=== PATIENT | male | born 1955 | race Caucasian/White ===

== ENCOUNTER 2018-07-09 18:03 | Emergency (ER) | payer OTHER ==
[2018-07-09 18:09] VITALS: BMI 24.7
[2018-07-09 18:11] VITALS: RESP 18
[2018-07-09] MEDS ORDERED: Sodium Chloride 0.9% 1,000 ML IV ONE (18:44)
[2018-07-09 19:22] LABS: VENOUS BLOOD GAS BASE EXCESS 1.9 mmol/L (0.0-2.0); VENOUS BLOOD GAS PO2 36 mm/Hg (30-55); VENOUS BLOOD PH 7.36 (7.32-7.43)
[2018-07-09 19:33] LABS: BASO # 0.02 K/mm3 (0.0-2.0); BASO % 0.2 % (0.0-3.0); EOS # 0.1 (0.0-0.7); EOS % 0.5 % (1.5-5.0); GRAN # 8.58 (1.4-6.5); GRAN % 85.8 % (50.0-68.0); HEMOGLOBIN 15.6 g/dL (14.0-18.0); LYMPH # 0.9 (1.2-3.4); MEAN CELL VOLUME 84.3 fl (80.0-105.0); MEAN CORPUSCULAR HEMOGLOBIN 29.8 pg (25.0-35.0); MEAN CORPUSCULAR HGB CONC 35.4 g/dl (31.0-37.0); MEAN PLATELET VOLUME 9.5 fl (7.0-11.0); MONO # 0.5 (0.1-0.6); MONO % 4.5 % (1.0-6.0); RBC 5.23 10^6/uL (3.5-6.1); RED CELL DISTRIBUTION WIDTH 12.7 % (11.5-14.5)
[2018-07-09 19:36] LABS: ALB/GLOB RATIO 1.2 (1.1-1.8); ALBUMIN 4.3 g/dL (3.0-4.8); ALT/SGPT 32 U/L (7-56); AST/SGOT 23 U/L (17-59); BLOOD UREA NITROGEN 24 mg/dL (7-21); CALCIUM 9.2 mg/dL (8.4-10.5); GFR NON-AFRICAN AMERICAN > 60
[2018-07-09 19:48] LABS: B-TYPE NATRIURETIC PEPTIDE 40.9 pg/mL (0-450); TROPONIN I < 0.01 ng/mL
[2018-07-09 19:53] LABS: FREE T4 1.18 ng/dL (0.78-2.19)
[2018-07-09 20:07] LABS: T3 1.05 ng/mL (0.97-1.69)
[2018-07-09 20:46] VITALS: BP 129/76; PULSE 104; TEMP 98.1; O2SAT 96
[2018-07-09 21:01] LABS: URINE BILIRUBIN NEGATIVE (NEGATIVE); URINE BLOOD TRACE-INTACT (NEGATIVE); URINE GLUCOSE (UA) NEGATIVE (NEGATIVE); URINE LEUKOCYTE ESTERASE NEGATIVE Leu/uL (NEGATIVE); URINE PROTEIN NEGATIVE mg/dL (<30 mg/dL); URINE UROBILINOGEN 0.2 E.U./dL (<1 E.U./dL)
[2018-07-09 21:03] LABS: URINE APPEARANCE CLEAR (CLEAR); URINE COLOR LIGHT YELLOW (YELLOW)
[2018-07-09 21:07] LABS: URINE BACTERIA NEG (NEG); URINE EPITHELIAL CELLS 0 - 2 /hpf (0-5); URINE RBC 0 - 2 /hpf (0-2); URINE WBC NEGATIVE /hpf (0-6)
--- NOTE | 2018-07-09 22:00 | ED PDOC ---
Arrival/HPI - General Chief Complaint: Weakness/Neurological Deficit Time Seen by Provider: 07/09/18 18:09 Historian: Patient - History of Present Illness Narrative History of Present Illness (Text): 07/09/18 18:50 A 63 year old male, whose past medical history includes vertigo (takes no meds for it), presents to the emergency department complaining of dizziness and weakness for the past 4 horus [employer] to ER. Patient reports also having 2 episodes of vomiting and is currently still feeling nauseous. Patient denies chest pain, shortness of breath, cough, or any other complaints at this time. No PMD Past Medical History - Provider Review Nursing Documentation Reviewed: Yes - Infectious Disease Hx of Infectious Diseases: None - Cardiac Hx Cardiac Disorders: No - Pulmonary Hx Respiratory Disorders: No - Neurological Hx Neurological Disorder: No - HEENT Hx HEENT Disorder: No - Renal Hx Renal Disorder: No - Endocrine/Metabolic Hx Endocrine Disorders: No - Hematological/Oncological Hx Blood Disorders: No - Integumentary Hx Dermatological Disorder: No - Musculoskeletal/Rheumatological Hx Musculoskeletal Disorders: No - Gastrointestinal Hx Gastrointestinal Disorders: No - Genitourinary/Gynecological Hx Genitourinary Disorders: Yes Hx Prostate Problems: Yes - Psychiatric Hx Psychophysiologic Disorder: No Hx Substance Use: No - Anesthesia Hx Anesthesia: No Family/Social History - Physician Review Nursing Documentation Reviewed: Yes Family/Social History: No Known Family HX Smoking Status: Never Smoked Hx Alcohol Use: No Hx Substance Use: No Allergies/Home Meds Allergies/Adverse Reactions: Allergies No Known Allergies Allergy (Verified 07/09/18 18:24) Home Medications: Home Meds Medication Instructions Recorded Confirmed Tamsulosin HCl [Flomax] 1 cap PO DAILY 07/09/18 07/09/18 Review of Systems - Physician Review All systems were reviewed & negative as marked: Yes - Review of Systems Constitutional: Other (weakness) Respiratory: absent: SOB, Cough Cardiovascular: absent: Chest Pain Neurological: Dizziness Physical Exam Vital Signs Reviewed: Yes Vital Signs Temp Pulse Resp BP Pulse Ox 07/09/18 21:59 98.1 F 104 H 18 129/76 96 07/09/18 20:42 98.1 F 104 H 18 129/76 96 07/09/18 18:11 60 18 136/81 97 07/09/18 18:09 96.2 F L 57 L 18 136/81 96 Temperature: Afebrile Blood Pressure: Normal Pulse: Regular Respiratory Rate: Normal Appearance: Positive for: Well-Appearing, Non-Toxic, Comfortable Pain Distress: None Mental Status: Positive for: Alert and Oriented X 3 - Systems Exam Head: Present: Atraumatic, Normocephalic Pupils: Present: PERRL Extroacular Muscles: Present: EOMI Conjunctiva: Present: Normal Mouth: Present: Moist Mucous Membranes Neck: Present: Normal Range of Motion Respiratory/Chest: Present: Clear to Auscultation, Good Air Exchange. No: Respiratory Distress, Accessory Muscle Use Cardiovascular: Present: Regular Rate and Rhythm, Normal S1, S2. No: Murmurs Abdomen: No: Tenderness, Distention, Peritoneal Signs Back: Present: Normal Inspection Upper Extremity: Present: Normal Inspection. No: Cyanosis, Edema Lower Extremity: Present: Normal Inspection. No: Edema Neurological: Present: GCS=15, CN II-XII Intact, Speech Normal Skin: Present: Warm, Dry, Normal Color. No: Rashes Psychiatric: Present: Alert, Oriented x 3, Normal Insight, Normal Concentration Medical Decision Making ED Course and Treatment: 07/09/18 18:53 Impression: 63 year old male with dizziness and weakness. No acute findings on physical exam. Plan: -- EKG -- Chest X-ray - negative findings. -- Labs -- Antivert -- Zofran -- IV Fluids -- Blood Culture -- Urine Culture -- Urinalysis -- Reassess and disposition Progress Notes: EKG: Ordered, reviewed, and independently interpreted the EKG. Rate : 61 BPM Rhythm : NSR Interpretation : No ST-segment elevations or depressions, no T-wave inversions, normal intervals. Comparison : No previous EKG for comparison. 07/09/18 21:45 Patient states he is feeling better now. Workup showed negative symptoms. Patient refused CT of brain. Patient states Meclizine does not work and requests to be given "little white pills" for his dizziness. Patient will be discharged with follow-up instructions. 07/09/18 22:28 - Lab Interpretations Lab Results: 07/09/18 18:53 07/09/18 18:53 Lab Results 07/09/18 20:56: Urine Color Light yellow, Urine Appearance Clear, Urine pH 6.0, Ur Specific [place] 1.020, Urine Protein Negative, Urine Glucose (UA) Negative, Urine Ketones Negative, Urine Blood Trace-intact H, Urine Nitrate Negative, Urine Bilirubin Negative, Urine Urobilinogen 0.2, Ur Leukocyte Esterase Negative , Urine RBC 0 - 2, Urine WBC Negative, Ur Epithelial Cells 0 - 2, Urine Bacteria Neg 07/09/18 19:18: pO2 36, VBG pH 7.36, VBG pCO2 50.0, VBG HCO3 28.2 H, VBG Total CO2 29.7 H, VBG O2 Sat (Calc) 72.3 H, VBG Base Excess 1.9, VBG Potassium 4.1, Glucose 109, Lactate 1.2, FiO2 21.0, Sodium 136.0, Chloride 104.0, Venous Blood Potassium 4.1 07/09/18 18:53: Influenza Typ A,B (EIA) Negative for flu a/b 07/09/18 18:53: Free T4 1.18, Total T3 1.05, TSH 3rd Generation 1.35 07/09/18 18:53: Sodium 138, Potassium 4.3, Chloride 103, Carbon Dioxide 26, Anion Gap 14, BUN 24 H, Creatinine 0.8, Est GFR ( Amer) > 60, Est GFR ( Non-Af Amer) > 60, Random Glucose 110, Calcium 9.2, Magnesium 2.0, Total Bilirubin 1.6 H, AST 23, ALT 32, Alkaline Phosphatase 92, Lactate Dehydrogenase 487, Total Creatine Kinase 85, Troponin I < 0.01, NT-Pro-B Natriuret Pep 40.9, Total Protein 7.8, Albumin 4.3, Globulin 3.5, Albumin/Globulin Ratio 1.2 07/09/18 18:53: WBC 10.0, RBC 5.23, Hgb 15.6, Hct 44.1, MCV 84.3, MCH 29.8, MCHC 35.4, RDW 12.7, Plt Count 232, MPV 9.5, Gran % 85.8 H, Lymph % (Auto) 9.0 L , [place] % (Auto) 4.5, Eos % (Auto) 0.5 L, Baso % (Auto) 0.2, Gran # 8.58 H, Lymph # (Auto) 0.9 L, [place] # (Auto) 0.5, Eos # (Auto) 0.1, Baso # (Auto) 0.02 I have reviewed the lab results: Yes - RAD Interpretation Radiology Orders: 07/09/18 18:43 CHEST PORTABLE [RAD] Stat 07/09/18 19:58 HEAD W/O CONTRAST [CT] Stat - Medication Orders Current Medication Orders: Discontinued Medications Sodium Chloride (Sodium Chloride 0.9%) 1,000 mls @ 250 mls/hr IV .Q4H ONE Stop: 07/09/18 22:43 Last Admin: 07/09/18 19:00 Dose: 250 mls/hr eMAR Start Stop Document 07/09/18 19:00 OCS (Rec: 07/09/18 19:00 OCS [id number]) Intravenous Solution Start Date 07/09/18 Start Time 19:00 Meclizine HCl (Antivert) 25 mg PO STAT STA Stop: 07/09/18 18:45 Last Admin: 07/09/18 19:00 Dose: 25 mg Ondansetron HCl (Zofran Inj) 4 mg IVP STAT STA Stop: 07/09/18 18:45 Last Admin: 07/09/18 19:00 Dose: 4 mg IVP Administration Document 07/09/18 19:00 OCS (Rec: 07/09/18 19:00 OCS [id number]) Charges for Administration # of IVP Administrations 1 - Scribe Statement The provider has reviewed the documentation as recorded by the Aubrey Walker Provider Scribe Provider Scribe Attestation: All medical record entries made by the Scribe were at my direction and personally dictated by me. I have reviewed the chart and agree that the record accurately reflects my personal performance of the history, physical exam, medical decision making, and the department course for this patient. I have also personally directed, reviewed, and agree with the discharge instructions and disposition. Disposition/Present on Arrival - Present on Arrival Any Indicators Present on Arrival: No History of DVT/PE: No History of Uncontrolled Diabetes: No Urinary Catheter: No History of Decub. Ulcer: No History Surgical Site Infection Following: None - Disposition Have Diagnosis and Disposition been Completed?: Yes Diagnosis: Vertigo Disposition: HOME/ ROUTINE Disposition Time: 21:00 Condition: IMPROVED Discharge Instructions (ExitCare): Vertigo (a Type of Dizziness) (DC) Additional Instructions: DARYL FAGAN, thank you for letting us take care of you today. The emergency medical care you received today was directed at your acute symptoms. If you were prescribed any medication, please fill it and take as directed. It may take several days for your symptoms to resolve. Return to the Emergency Department if your symptoms worsen, do not improve, or if you have any other problems. Please contact your doctor or call one of the physicians/clinics you have been referred to that are listed on the Patient Visit Information form that is included in your discharge packet. Bring any paperwork you were given at discharge with you along with any medications you are taking to your follow up visit. Our treatment cannot replace ongoing medical care by a primary care provider outside of the emergency department. Thank you for allowing the [facility] team to be part of your care today. Follow up with your primary care doctor in 2-3 days for re-evaluation and further management. Prescriptions: Metoclopramide [Reglan] 10 mg PO Q8 PRN #15 tab PRN Reason: Dizziness Referrals: Jose Huang MD [Primary Care Provider] - Follow up with primary Forms: [facility] ([place])
--- NOTE | 2018-07-10 08:53 | RAD ---
Date of service: 07/09/2018 HISTORY: r/o infiltrate COMPARISON: No prior. FINDINGS: LUNGS: No active pulmonary disease. PLEURA: No significant pleural effusion identified, no pneumothorax apparentl. CARDIOVASCULAR: Normal. OSSEOUS STRUCTURES: No significant abnormalities. VISUALIZED UPPER ABDOMEN: Normal. OTHER FINDINGS: None. IMPRESSION: No active disease.
--- NOTE | 2018-07-10 21:38 | CARD ---
APPROVED REPORT Date of service: 07/09/2018 EKG Measurement Heart [id number] <Conclusion> Normal sinus rhythm Normal ECG
== END 2018-07-09 21:59 | disposition home or self-care (01) ==
LOC: ED 18:03
DX: R42 Dizziness and giddiness (principal)
CPT/HCPCS: 71045; 80053; 81001; 82550; 82803; 83615; 83735; 83880; 84439; 84443; 84480; 84484; 85025; 87040; 87086; 87804; 93005; 96374; 99285; J2405; J7030